=== PATIENT | male | born 1985 | race Caucasian/White ===

== ENCOUNTER 2018-01-04 23:40 | Emergency (ER) | payer MEDICAID, OTHER ==
[2018-01-04 23:40] VITALS: BMI 38.3
[2018-01-04 23:54] VITALS: BP 154/92; PULSE 94; RESP 20; TEMP 98.7; O2SAT 98
--- NOTE | 2018-01-05 00:15 | C.PDOC ---
History Of Present Illness 32 year old male presents to the ER requesting a refill of his gabapentin and wellbutrin. [facility] ago and finished the medications he was given at release 2 weeks ago. He has an appointment at [facility] in less than 2 weeks. Denies homicidal ideation, suicidal ideation, or other complaints at this time. Time Seen by Provider: 01/05/18 00:03 Chief Complaint (Nursing): Med Refill History Per: Patient History/Exam Limitations: no limitations Recent travel outside of the [place]: No Past Medical History Reviewed: Historical Data, Nursing Documentation, Vital Signs Vital Signs: Last Vital Signs Temp 98.7 F 01/04/18 23:49 Pulse 94 H 01/04/18 23:49 Resp 20 01/04/18 23:49 BP 154/92 H 01/04/18 23:49 Pulse Ox 98 01/04/18 23:49 - Medical History PMH: Anxiety, Depression Denies: Diabetes, Hepatitis, HIV, HTN, Seizures, Sexually Transmitted Disease - [facility] Procedures DETOXIFICATION SERVICES FOR SUBSTANCE ABUSE TREATMENT (05/25/15) DRUG DETOXIFICATION (10/30/14) OTHER SKIN & SUBQ I D (04/17/13) Family History: States: Unknown Family Hx - Social History Hx Tobacco Use: Yes Hx Alcohol Use: Yes Hx Substance Use: Yes - Immunization History Hx Tetanus Toxoid Vaccination: Yes Hx Influenza Vaccination: Yes Hx Pneumococcal Vaccination: Yes Review Of Systems Constitutional: Negative for: Fever, Chills Cardiovascular: Negative for: Chest Pain, Palpitations Respiratory: Negative for: Cough, Shortness of Breath Gastrointestinal: Negative for: Nausea, Vomiting Neurological: Negative for: Weakness, Numbness Psych: Negative for: Suicidal ideation, Other (Homicidal ideation) Physical Exam - Physical Exam Appears: Non-toxic Skin: Normal Color, Warm, Dry Head: Atraumatic, Normacephalic Eye(s): bilateral: Normal Inspection Oral Mucosa: Moist Chest: Symmetrical, No Tenderness Cardiovascular: Rhythm Regular Respiratory: Normal Breath Sounds, No Rales, No Rhonchi, No Wheezing Extremity: Normal ROM (x4) Neurological/Psych: Oriented x3, Normal Speech Gait: Steady ED Course And Treatment O2 Sat by Pulse Oximetry: 98 (room air) Pulse Ox Interpretation: Normal Progress Note: Patient states he was told to come to the ER for Rx refill, however, patient refuses to be seen by crisis, will discharge home and advise to [facility] or clinic for management. Disposition Counseled Patient/Family Regarding: Diagnosis, Need For Followup - Disposition Referrals: [facility] [Outside] Disposition: HOME/ ROUTINE Disposition Time: 00:12 Condition: GOOD Additional Instructions: May follow up in clinic or keep appointment at [facility] Return to ER if worse Forms: General Discharge Instructions - Clinical Impression Clinical Impression: Medication refill - PA / AGILE TEST LEAD / Resident Statement MD/DO has reviewed & agrees with the documentation as recorded. - Scribe Statement The provider has reviewed the documentation as recorded by the Scribbandar Napoles All medical record entries made by the Primo were at my direction and personally dictated by me. I have reviewed the chart and agree that the record accurately reflects my personal performance of the history, physical exam, medical decision making, and the department course for this patient. I have also personally directed, reviewed, and agree with the discharge instructions and disposition.
== END 2018-01-05 00:14 | disposition home or self-care (01) ==
LOC: C.ER 23:40
DX: Z76.0 Encounter for issue of repeat prescription (principal); Z72.0 Tobacco use

== ENCOUNTER 2018-02-07 10:22 | Emergency (ER) | payer MEDICAID ==
[2018-02-07 10:22] VITALS: BMI 38.3
[2018-02-07 10:29] VITALS: BP 151/87; PULSE 95; RESP 16; TEMP 98.7; O2SAT 98
--- NOTE | 2018-02-07 11:07 | C.PDOC ---
History Of Present Illness 32 y/o male presents to the ED with 2 month history of low back pain radiating to bilateral lower extremities and to his heel Patient was seen by PMD and was prescribed gabapentin for diagnosis of sciatica. He was referred to machine wood sander given steroid injections to his heels, with minimal relief. States he was also referred to neurologist, had appointment today and went, but his insurance was not accepted and therefore he could not be seen. No new pain or acute complaints. He denies any bowel/bladder dysfunction, history of trauma/fall, fever, chills, weakness or paresthesias to the lower extremities. 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 Patient reports his heels hurt the most, especially after working. Patient also took Motrin 800mg previously, and ran out. Time Seen by Provider: 02/07/18 10:45 Chief Complaint (Nursing): Back Pain History Per: Patient History/Exam Limitations: no limitations Onset/Duration Of Symptoms: Days Current Symptoms Are (Timing): Still Present Previous Symptoms: Back Pain (Sciatica) Past Medical History Reviewed: Historical Data, Nursing Documentation, Vital Signs Vital Signs: Last Vital Signs Temp 98.7 F 02/07/18 10:28 Pulse 95 H 02/07/18 10:28 Resp 16 02/07/18 10:28 BP 151/87 H 02/07/18 10:28 Pulse Ox 98 02/07/18 10:28 - Medical History PMH: Anxiety, Back Problems (Sciatica), Depression Denies: Diabetes, Hepatitis, HIV, HTN, Seizures, Sexually Transmitted Disease Other PMH: Eczema - [facility] Procedures DETOXIFICATION SERVICES FOR SUBSTANCE ABUSE TREATMENT (05/25/15) DRUG DETOXIFICATION (10/30/14) OTHER SKIN & SUBQ I D (04/17/13) Family History: States: Unknown Family Hx - Social History Hx Tobacco Use: Yes Hx Alcohol Use: Yes Hx Substance Use: Yes - Immunization History Hx Tetanus Toxoid Vaccination: Yes Hx Influenza Vaccination: Yes Hx Pneumococcal Vaccination: Yes Review Of Systems Except As Marked, All Systems Reviewed And Found Negative. Constitutional: Negative for: Fever, Chills Respiratory: Negative for: Shortness of Breath Gastrointestinal: Negative for: Nausea, Vomiting, Diarrhea Musculoskeletal: Positive for: Back Pain (radiating down to bilateral legs), Foot Pain (bilateral heel pain) Neurological: Negative for: Weakness, Numbness Physical Exam - Physical Exam Appears: Non-toxic, No Acute Distress Skin: Warm, Dry Head: Atraumatic, Normacephalic Eye(s): bilateral: PERRL, EOMI Oral Mucosa: Moist Neck: Normal ROM Chest: Symmetrical Respiratory: No Accessory Muscle Use, Other (Normal inspiratory effort) Back: No Vertebral Tenderness, Other (Mild tenderness on palpation to bilateral PSIS) Extremity: Normal ROM, No Tenderness (to bilateral lower extremities; Heels non- tender), Capillary Refill (less than 2 sec), No Deformity, No Swelling (to bilateral lower extremities; no gross swelling to heels) Extremity: Bilateral: Atraumatic, Normal Color And Temperature Pulses: Left Dorsalis Pedis: Normal, Right Dorsalis Pedis: Normal DTR: Knee (R): 2+, Knee (L): 2+ Neurological/Psych: Oriented x3, Normal Speech, Normal Motor (strength is 5/5 throughout), Normal Sensation, Normal Reflexes Gait: Steady ED Course And Treatment O2 Sat by Pulse Oximetry: 98 (RA) Pulse Ox Interpretation: Normal Medical Decision Making Medical Decision Making: Impression: Back pain, hx of sciatica, bilateral heel pain Plan: Patient remains AAOx3, in no acute distress, with no acute complaints. Patient advised there is no indication for further emergency intervention. Plan is to discharge patient home with prescription for PO steroids and Motrin for pain control. On further discussion, patient has PMD (Dr. Oswaldo Pat) who he is scheduled to see today. States he will ask for Gabapentin refill from PMD. Patient states he also will call community worker service or the back of insurance card, in order to secure neurology follow up. Disposition Counseled Patient/Family Regarding: Diagnosis, Need For Followup - Disposition Referrals: [facility] [Outside] Disposition: HOME/ ROUTINE Disposition Time: 11:10 Condition: STABLE Additional Instructions: IRAIS ROMERO, thank you for letting us take care of you today. Your provider was Aneta Arthur MD and you were treated for BACK/FOOT PAIN. The emergency medical care you received today was directed at your acute symptoms. If you were prescribed any medication, please fill it and take as directed. It may take several days for your symptoms to resolve. Return to the Emergency Department if your symptoms worsen, do not improve, or if you have any other problems. Please contact your doctor or call one of the physicians/clinics you have been referred to that are listed on the Patient Visit Information form that is included in your discharge packet. Bring any paperwork you were given at discharge with you along with any medications you are taking to your follow up visit. Our treatment cannot replace ongoing medical care by a primary care provider outside of the emergency department. Thank you for allowing the [email or web address] team to be part of your care today. Prescriptions: Ibuprofen [Motrin Tab] 800 mg PO TID PRN #30 tab PRN Reason: Pain, Moderate (4-7) predniSONE [Prednisone] 40 mg PO DAILY #10 tab Instructions: Sciatica, Low Back Pain in Adults Forms: [employer] (Turkmen), General Discharge Instructions - POA Present On Arrival: None - Clinical Impression Clinical Impression: Low back pain, Musculoskeletal pain, Sciatica - Scribe Statement The provider has reviewed the documentation as recorded by the Primo Bull Provider Attestation: All medical record entries made by the Primo were at my direction and personally dictated by me. I have reviewed the chart and agree that the record accurately reflects my personal performance of the history, physical exam, medical decision making, and the department course for this patient. I have also personally directed, reviewed, and agree with the discharge instructions and disposition.
== END 2018-02-07 11:26 | disposition home or self-care (01) ==
LOC: C.ER 10:22
DX: M54.40 Lumbago with sciatica, unspecified side (principal); M79.18 Myalgia, other site

== ENCOUNTER 2018-06-10 06:13 | Day surgery (SDC) | payer MEDICAID ==
[2018-06-07 08:52] VITALS: BMI 44.6
[2018-06-10] MEDS ORDERED: Propofol 10 mg/ml Inj (20 ML) ONE ×3 (07:32→08:23)
[2018-06-10] MEDS ORDERED: Bupivacaine HCl 0.5% PF (10 ml) Inj ONE ×2 (07:45→08:31)
[2018-06-10] MEDS ORDERED: ceFAZolin 1 gm in NS 2 GM/200 ML BAG IVPB ONE (07:45)
[2018-06-10] MEDS ORDERED: Lidocaine Hydrochloride 10 ML INJ ONE ×2 (07:46→08:12)
[2018-06-10] MEDS ORDERED: Triamcinolone Acetonide 40 mg/mL Inj ONE (07:57)
[2018-06-10] MEDS ORDERED: Dexamethasone 4 mg/1 ml ONE (07:57)
[2018-06-10] MEDS ORDERED: Bacitracin 500 Units/gm Oint Foilpak UD ONE (08:37)
[2018-06-10] MEDS ORDERED: Oxycodone/Acetaminophen 5/325 mg Tab PO PRN ×2 (08:53)
--- NOTE | 2018-06-10 08:53 | PCM.SURG1 ---
Surgeon's Initial Post Op Note - Surgeon's Notes Surgeon: Dr. Cabrera, DPM Machine Rug Cleaner: Cj Valdez PGY2 Type of Anesthesia: IV Sedation, Local Anesthesia Administered By: Dr. Diop Pre-Operative Diagnosis: Left foot plantar fasciitis Operative Findings: Plantar fasciitis left foot. M- 3-0 nylon. I- Pre: 20 cc 1:1 1% lidocaine plain, 0.5% marcaine plain. Post: 10 cc 0.5% marcaine plain, 1 cc kenalog, 2 cc decadron Post-Operative Diagnosis: Same Operation Performed: Left foot endoscopic plantar fasciotomy Specimen/Specimens Removed: None Estimated Blood Loss: EBL {In ML}: 1 Blood Products Given: N/A Drains Used: No Drains Post-Op Condition: Good Date of Surgery/Procedure: 06/10/18 Time of Surgery/Procedure: 08:52
[2018-06-10] MEDS ORDERED: Lactated Ringer's 1,000 ML IV SCH (09:00)
[2018-06-10 13:29] VITALS: BP 114/76; PULSE 74; RESP 16; TEMP 98.2; O2SAT 98
--- NOTE | 2018-06-13 06:40 | OP ---
PROCEDURE DATE: 06/10/2018 PREOPERATIVE DIAGNOSIS: Painful plantar fasciitis of the left foot. POSTOPERATIVE DIAGNOSIS: Painful plantar fasciitis of the left foot. PROCEDURE PERFORMED: Endoscopic plantar fasciotomy of the left foot. SURGEON: Han Irby DPM SHEAR OPERATOR AUTOMATIC: Cj Valdez DPM, PGY-2 ANESTHESIOLOGIST: Dr. Diop. ANESTHESIA: IV sedation with local. INDICATION: The patient is a 32-year-old male with the above-mentioned diagnosis. The patient is being treated by Dr. Irby in the office on an outpatient basis where he has exhausted multiple forms of conservative treatment options. At this time, the patient now seeks surgical intervention. All risks, benefits, and possible complications of the proposed procedure have been explained to the patient at length. The patient verbalized understanding and wishes to proceed. All questions were answered. No guarantees were given nor implied. Consent was signed and n.p.o. was confirmed prior to bringing the patient to the operating room. OPERATIVE PROCEDURE: The patient was brought into the operating room and placed on the operating room table in the supine position. A pneumatic ankle tourniquet at a pressure setting of 250 mmHg was utilized during the entirety of the procedure. Once IV sedation was achieved, local injection of 20 mL of 1:1 mixture of 1% lidocaine plain and 0.5% Marcaine plain was introduced in a local block fashion to the left foot. Once local anesthesia was achieved, foot was prepped and draped in the usual sterile manner and the procedure was begun. PROCEDURE #1: Attention was then turned to the left foot where the patient's plantar fasciitis pain had been previously marked out prior to the surgery using the marking pen. Utilizing a #15 blade, approximately 1 cm linear longitudinal incision was made on the medial aspect of the patient's left foot in line with the area of maximum pain due to his plantar fasciitis. The hemostat was utilized to perform blunt dissection down to the level of the plantar fascia. A probe was utilized to the plantar fascia to ensure that the incision was made in proper lining with the plantar fascial band. Next, a blunt obturator and cannula were passed from medial to lateral across the patient's foot just plantar to the plantar fascia sheath. A #15 blade was utilized to make a small linear incision on the lateral aspect of the foot so that the obturator and cannula could be passed through the lateral side of the foot as well. The obturator was then removed and multiple Q-tips were passed through the cannula in order to remove any loose fatty tissue. Next, an arthroscopic camera was inserted into the cannula which showed visualization of the plantar fascial band. A hooked cutter was then entered into the opposite side of the cannula on the medial side of the foot and the medial one-third of the plantar fascial band was cut under direct visualization using the camera. The plantar fascia was then meticulously inspected to ensure that no remaining plantar fascial bands are connected on the medial third of the plantar fascia. The site was then flushed with copious amounts of normal sterile saline and the foot was dorsiflexed on the ankle showing a large degree of increased range of motion compared to preoperative evaluation. The camera and cannula were then removed from the foot and both incision sites were reapproximated using 4-0 nylon suture and the procedure was completed. Both incision sites were dressed with Bactroban, Adaptic, 4x4 gauze, Sommer, Coban, and a light Regis bandage. POSTOPERATIVE CONDITION: The patient tolerated the anesthesia and the procedure well without any apparent complications or complaints. The patient was escorted from the operating room to the recovery room with vital signs stable and neurovascular structures intact. The patient will follow up with Dr. Irby in his office on an outpatient basis. Cj Valdez DPM Han Irby DPM
== END 2018-06-10 14:01 | disposition home or self-care (01) ==
LOC: C.SDS 06:13
PROVIDERS: ATTEND Podiatrist Foot & Ankle Surgery
DX: M72.2 Plantar fascial fibromatosis (principal)
CPT/HCPCS: 29893; 97116; 97161; G8978; G8979; G8980; J0690; J1100; J2001; J2405; J2704; J3010; J3301

== ENCOUNTER 2018-08-15 16:07 | Emergency (ER) | payer MEDICAID ==
[2018-08-15 16:07] VITALS: BMI 44.6
[2018-08-15 17:19] VITALS: RESP 18; TEMP 98.8
[2018-08-15] MEDS ORDERED: Albuterol-Ipratrop 3 mg / 0.5 (3 ml) UD INH STA (18:01)
--- NOTE | 2018-08-15 18:05 | C.PDOC ---
History Of Present Illness 32-year-old male, whose past medical history includes asthma, presents to the ED for evaluation of cough, congestion and sore throat for two days. Patient reports nausea, denies vomiting. Patient also denies any pain or sick contacts at this time. Time Seen by Provider: 08/15/18 17:54 Chief Complaint (Nursing): Abdominal Pain History Per: Patient History/Exam Limitations: no limitations Onset/Duration Of Symptoms: Days (2) Current Symptoms Are (Timing): Still Present Quality Of Discomfort: denies: "Pain" Associated Symptoms: Nausea. denies: Vomiting Past Medical History Reviewed: Historical Data, Nursing Documentation, Vital Signs Vital Signs: Last Vital Signs Temp 98.8 F 08/15/18 17:14 Pulse 93 H 08/15/18 17:14 Resp 18 08/15/18 17:14 BP 155/83 H 08/15/18 17:14 Pulse Ox 98 08/15/18 17:14 Primary Care Provider: Oswaldo Pat - Medical History PMH: Anxiety, Back Problems (Sciatica), Depression Denies: Diabetes, Hepatitis, Chronic Kidney Disease, Sexually Transmitted Disease Surgical History: No Surg Hx - [facility] Procedures DETOXIFICATION SERVICES FOR SUBSTANCE ABUSE TREATMENT (05/25/15) DRUG DETOXIFICATION (10/30/14) OTHER SKIN & SUBQ I D (04/17/13) Family History: States: Unknown Family Hx - Social History Hx Tobacco Use: Yes Hx Alcohol Use: No Hx Substance Use: No - Immunization History Hx Tetanus Toxoid Vaccination: Yes Hx Influenza Vaccination: No Hx Pneumococcal Vaccination: No Review Of Systems ENT: Positive for: Nose Congestion, Throat Pain Respiratory: Positive for: Cough Gastrointestinal: Positive for: Nausea. Negative for: Vomiting, Abdominal Pain Physical Exam - Physical Exam Appears: Non-toxic, No Acute Distress Skin: Normal Color, Warm, Dry Head: Atraumatic, Normacephalic Eye(s): bilateral: Normal Inspection Ear(s): Bilateral: Normal Nose: Normal, No Discharge Oral Mucosa: Moist Throat: Erythema, No Exudate Neck: Supple Chest: Symmetrical, No Deformity, No Tenderness Cardiovascular: Rhythm Regular, No Murmur Respiratory: No Rales, No Rhonchi, Wheezing (minimal, scattered ) Gastrointestinal/Abdominal: Soft, No Tenderness, No Guarding, No Rebound Extremity: Normal ROM, Capillary Refill Neurological/Psych: Oriented x3, Normal Speech, Normal Cognition ED Course And Treatment O2 Sat by Pulse Oximetry: 98 (on RA ) Pulse Ox Interpretation: Normal Medical Decision Making Medical Decision Making: Progress: CXR, Flu swab, Rapid Strep test ordered and reviewed. Duoneb INH, Tylenol PO, and Prednisone PO given. viral syndrome mild asthma. pt on phone in er in [place]. no abd pain influenza step neg cxr neg as read by me. pt repeatly asking for dc. refues to wait in er for my reassess. Disposition - Disposition Referrals: [facility] [Outside] [facility] [Outside] Disposition: HOME/ ROUTINE Disposition Time: 20:00 Condition: STABLE Additional Instructions: return to er with worsening symptoms or concerns . Prescriptions: Prednisone 50 mg PO DAILY #5 tab Instructions: Asthma in Adults, Viral Syndrome (DC) Forms: Always Prepped (Sammarinese) - Clinical Impression Clinical Impression: Asthma, Viral syndrome - Scribe Statement The provider has reviewed the documentation as recorded by the Scribe (Cate Eugene) Provider Attestation: All medical record entries made by the Scribe were at my direction and personally dictated by me. I have reviewed the chart and agree that the record accurately reflects my personal performance of the history, physical exam, medical decision making, and the department course for this patient. I have also personally directed, reviewed, and agree with the discharge instructions and disposition.
[2018-08-15] MEDS ORDERED: Albuterol-Ipratrop 3 mg / 0.5 (3 ml) UD ONE (18:15)
[2018-08-15 18:31] LABS: INFLUENZA A B NEGATIVE FOR FLU A/B (NEGATIVE)
[2018-08-15 19:27] VITALS: BP 135/78; PULSE 90
[2018-08-15 20:33] VITALS: O2SAT 98
--- NOTE | 2018-08-16 10:10 | RAD ---
HISTORY: cough COMPARISON: Chest x-ray performed 10/11/14 TECHNIQUE: Chest PA and lateral, 2 views FINDINGS: LUNGS: No focal consolidation. Please note that chest x-ray has limited sensitivity for the detection of pulmonary masses. PLEURA: No significant pleural effusion identified. No definite pneumothorax . CARDIOVASCULAR: The cardiomediastinal silhouette appears within normal limits of size. Atherosclerotic calcifications present. OSSEOUS STRUCTURES: No acute osseous abnormality identified. VISUALIZED UPPER ABDOMEN: Unremarkable. OTHER FINDINGS: None. IMPRESSION: No acute findings identified.
== END 2018-08-15 19:27 | disposition home or self-care (01) ==
LOC: C.ER 16:07
DX: B34.9 Viral infection, unspecified (principal); J45.909 Unspecified asthma, uncomplicated; Z72.0 Tobacco use